=== PATIENT | male | born 1985 | race African-American/Black ===

== ENCOUNTER 2016-05-26 15:39 | Emergency (ER) | payer OTHER ==
[2016-05-26 16:05] VITALS: BP 155/76; PULSE 76; TEMP 97.6; BMI 30.7
--- NOTE | 2016-05-26 17:24 | PDOC ---
History of Present Illness - General Chief Complaint: Foreign Body (FB) Stated Complaint: GLASS IN RT FOOT Time Seen by Provider: 05/26/16 15:49 History Source: Patient Exam Limitations: No Limitations - History of Present Illness Initial Comments: 05/26/16 17:18 Patient states stepped on a glass light told 3 weeks ago , broke the glass, and had a piece of light bulb embedded into plantar aspect of right foot. States to extract the fragments he could see however feels may have retained some of these foreign bodies. Continued to work, pain only occurred with movement of his foot not walking until a few days ago when had a recurrence of the pain with a small pustule noted at the bottom of his foot. Went to urgent care today where they probed and x-rayed noting a continued foreign body stray exam at plantar aspect at site of wound. They were uninjured successful in extraction. Patient came for evaluation and hopeful extraction of this foreign body. Denies fever, denies redness or swelling to foot. 05/26/16 17:18 05/26/16 22:32 Occurred: reports: other Severity: reports: mild, moderate Pain Location: reports: lower extremity (right foot) Associated Symptoms (Fall): denies symptoms Past History - Travel Traveled outside of the country in the last 30 days: No Close contact w/someone who was outside of country & ill: No - Past Medical History Allergies/Adverse Reactions: Allergies Allergy/AdvReac Type Severity Reaction Status Date / Time No Known Allergies Allergy Verified 05/26/16 16:00 Home Medications: Ambulatory Orders Amox-Tr/K Cl [Augmentin 875Mg Tablet] 1 tab PO BID #14 tablet 05/26/16 Asthma: Yes - Psycho/Social/Smoking Cessation Hx Suicidal Ideation: No Smoking History: Never smoked Trauma Specific PMHX - Complaint Specific PMHX Back Injury: No Neck Injury: No Review of Systems - Review of Systems Able to Perform ROS?: Yes Is the patient limited [place] proficient: Yes Constitutional: Yes: See HPI. No: Symptoms Reported, Fever, Malaise HEENTM: No: Symptoms Reported Respiratory: No: Symptoms reported Musculoskeletal: Yes: Symptoms Reported, See HPI, Other (tenderness and mild swelling at plantar aspect of right midfoot over third metatarsal. Has full range of motion to all toes, is able to flex and extend) Integumentary: Yes: Symptoms Reported, See HPI, Other Neurological: No: Symptoms reported All Other Systems: Reviewed and Negative *Physical Exam - Vital Signs Last Vital Signs Temp Pulse Resp BP Pulse Ox 97.6 F 76 19 155/76 99 05/26/16 16:01 05/26/16 16:01 05/26/16 16:01 05/26/16 16:01 05/26/16 16:01 - Physical Exam General Appearance: Yes: Nourished, Appropriately Dressed, Apparent Distress, Mild Distress HEENT: positive: MICHAEL, Normal ENT Inspection, TMs Normal, Pharynx Normal Neck: positive: Supple Respiratory/Chest: positive: Lungs Clear Integumentary: positive: Normal Color, Swelling, Other (tenderness and open wound noted to the plantar aspect of foot, site of foreign body and incision and attempted extraction from other health care provider today. No active bleeding, is soap tender to touch with foreign body sensation.) Neurologic: positive: applications processor II-XII NML intact, Fully Oriented, Alert, Normal Mood/ Affect, Normal Response, Motor Strength 5/5 Procedures - Incision and Drainage I&D Site: Right: Other (right foot wound probed with 18-gauge needle after cleaning and anesthetizing using ethyl chloride. Unable to identify or extract foreign body after visualization from x-rays patient transported here from other health care provider. Dressed with bacitracin ointment, bulky dressing applied, and patient encouraged to continue soaking in either return to this emergency department or follow-up with PMD for potential surgical excision of glass fragment.) Plain Packing: No Progress Note - Progress Note Progress Note: Retained foreign body to right foot 3 weeks. Unable to extract today. Given prescription for watch and wait Augmentin in case of infection and encourage to continue soaking. Will discuss with PMD and potential evaluation by surgeon foreign body extraction. *DC/Admit/Observation/Transfer Diagnosis at time of Disposition: Foreign body in foot Qualifiers: Encounter type: initial encounter Laterality: right Qualified Code(s): S90.851A - Superficial foreign body, right foot, initial encounter - Discharge Dispostion Disposition: HOME Condition at time of disposition: Stable Admit: No - Prescriptions Prescriptions: Amox-Tr/K Cl [Augmentin 875Mg Tablet] 1 tab PO BID #14 tablet - Referrals Referrals: Jarocho Crawford MD [Primary Care Provider] - - Patient Instructions Printed Discharge Instructions: DI for Removal of Foreign Body From Skin Additional Instructions: Rest, keep area elevated. Avoid strenuous activity or exercise until wound is healed Use hot soaks to area to bring more blood to the surface and encourage drainage May change dressings as needed to keep clean - Allow water from shower to wash area thoroughly for 2-3 minutes, and pat dry upon exit of shower and replace dressing. Return to emergency department for swelling to foot, redness, streaking, or fevers, worsen pain. May use Tylenol or Motrin for mild pain relief Start antibiotics for redness, swelling, evidence of infection and come to ER or see PMD immediately if this occurs Followup with private physician in 2-3 days for wound check Return to emergency Department for worsening swelling, pain, redness, fevers as needed - Post Discharge Activity Work/School Note: Back to Work
== END 2016-05-26 17:28 | disposition home or self-care (01) ==
LOC: JERFT 15:39
PROC: 0H9MXZZ Drainage of Right Foot Skin, External Approach (ICD-10-PCS; principal; 2016-05-26)
DX: S90.851A Superficial foreign body, right foot, initial encounter (principal); W45.8XXA Other foreign body or object entering through skin, initial encounter; W25.XXXA Contact with sharp glass, initial encounter; Y93.89 Activity, other specified; Y92.89 Other specified places as the place of occurrence of the external cause
CPT/HCPCS: 99281-25